=== PATIENT | male | born 1990 | race Caucasian/White ===

== ENCOUNTER 2017-01-08 10:51 | Emergency (ER) | payer OTHER ==
[~2017-01-08] VITALS: Ht 172.7 cm; Wt 131.1 kg
[2017-01-08 11:27] VITALS: BP 122/85
[2017-01-08 12:34] LABS: Hepatitis B Surface Antibody Positive
== END 2017-01-08 14:19 | disposition home or self-care (01) ==
LOC: ER 10:55
DX: S61.203A Unspecified open wound of left middle finger without damage to nail, initial encounter (principal); T75.89XA Other specified effects of external causes, initial encounter; W46.0XXA Contact with hypodermic needle, initial encounter; Y93.89 Activity, other specified; Y92.89 Other specified places as the place of occurrence of the external cause; Y99.8 Other external cause status
CPT/HCPCS: 36415; 86703; 86706; 86803; 87340

== ENCOUNTER → 2017-02-19 | Outpatient (CLI) | payer OTHER ==
[2017-02-19 16:33] LABS: Hepatitis B Surface Antibody Positive
== END | disposition home or self-care (01) ==
LOC: LAB 15:44
PROVIDERS: ATTEND Preventive Medicine Preventive Medicine/Occupational Environmental Medicine
DX: Z02.1 Encounter for pre-employment examination (principal)
CPT/HCPCS: 36415; 86703; 86706; 86803; 87340

== ENCOUNTER → 2018-04-19 | Outpatient (CLI) | payer BC ==
[2018-04-19 09:24] LABS: Basophils # (auto) 0.1 uL; Eosinophils # (auto) 0.5 uL; Eosinophils % (auto) 7.1 % (0.0-7.0); Neutrophils # (auto) 3.6 uL
[2018-04-19 09:26] LABS: Basophils % (auto) 1.2 % (0.0-2.0); Hematocrit 52.7 % (41.0-53.0); Hemoglobin 17.9 g/dL (13.5-17.5); Lymphocytes # (auto) 1.8 uL; Lymphocytes % (auto) 27.8 % (10.0-50.0); Mean Corpuscular Hemoglobin 31.2 pg (28.0-32.0); Mean Corpuscular Hgb Conc. 33.9 g/dL (32.0-36.0); Mean Corpuscular Volume 91.8 fL (80.0-100.0); Monocytes # (auto) 0.5 uL; Monocytes % (auto) 7.1 % (0.0-12.0); Neutrophils % (auto) 56.8 % (37.0-80.0); Nucleated Red Blood Cells % 0.1 %; Platelet Count (auto) 212 10^3/uL (140-450); Red Blood Cells 5.74 10^6/uL (4.5-5.90); White Blood Cell 6.4 10^3/uL (4.4-10.8)
[2018-04-19 09:31] LABS: Urine Bacteria NONE SEEN /hpf (None Seen); Urine Blood Negative /uL (Negative); Urine Mucus FEW (None Seen); Urine Specific Gravity 1.022 (1.001-1.035); Urine WBC <1 /hpf (0 - 3)
[2018-04-19 10:29] LABS: BUN/Creatinine Ratio 9.6; Bilirubin, Total 0.8 mg/dL (0.2-1.0); Calcium 9.1 mg/dL (8.5-10.1); Potassium 3.9 mmol/L (3.5-5.1); Total Protein 8.1 g/dL (6.4-8.2)
== END | disposition home or self-care (01) ==
LOC: LAB 08:52
PROVIDERS: ATTEND Internal Medicine
DX: F32.9 Major depressive disorder, single episode, unspecified (principal)
CPT/HCPCS: 36415; 80053; 80061; 81001; 84439; 84443; 85025; 85652

== ENCOUNTER → 2019-05-10 | Outpatient (CLI) | payer OTHER | END | disposition home or self-care (01) | LOC: LAB 15:27 | PROVIDERS: ATTEND Preventive Medicine Preventive Medicine/Occupational Environmental Medicine | DX: Z02.1 Encounter for pre-employment examination (principal) | CPT/HCPCS: 86787 ==

== ENCOUNTER → 2020-02-14 | Outpatient (CLI) | payer BC ==
[2020-02-14 12:22] LABS: Basophils # (auto) 0.1 10 ^3/uL (0-0.2); Basophils % (auto) 1.4 % (0.0-2.0); Eosinophils # (auto) 0.6 10 ^3/uL (0-0.8); Eosinophils % (auto) 9.3 % (0.0-7.0); Hematocrit 49.7 % (41.0-53.0); Lymphocytes % (auto) 31.8 % (10.0-50.0); Mean Corpuscular Hemoglobin 31.4 pg (28.0-32.0); Mean Corpuscular Hgb Conc. 34.1 g/dL (32.0-36.0); Mean Corpuscular Volume 91.9 fL (80.0-100.0); Monocytes # (auto) 0.4 10 ^3/uL (0-1.3); Monocytes % (auto) 6.8 % (0.0-12.0); Neutrophils # (auto) 3.1 10 ^3/uL (1.6-8.6); Neutrophils % (auto) 50.7 % (37.0-80.0); Nucleated Red Blood Cells % 0.3 %; Platelet Count (auto) 217 10^3/uL (140-450); Red Blood Cells 5.41 10^6/uL (4.5-5.90); Red Cell Distribution Width 14.3 % (11.8-14.3); White Blood Cell 6.1 10^3/uL (4.4-10.8)
[2020-02-14 12:31] LABS: Urine Bacteria NONE SEEN /hpf (None Seen); Urine Blood Negative /uL (Negative); Urine Mucus FEW (None Seen); Urine Specific Gravity 1.015 (1.001-1.035); Urine WBC 1 /hpf (0 - 3)
[2020-02-14 12:56] LABS: Albumin 3.8 g/dL (3.4-5.0); Calcium 9.1 mg/dL (8.5-10.1); Potassium 3.8 mmol/L (3.5-5.1)
[2020-02-14 13:01] LABS: BUN/Creatinine Ratio 5.8; Bilirubin, Total 0.9 mg/dL (0.2-1.0); Total Protein 7.5 g/dL (6.4-8.2)
== END | disposition home or self-care (01) ==
LOC: LAB 12:06
PROVIDERS: ATTEND Internal Medicine
DX: J45.20 Mild intermittent asthma, uncomplicated (principal); F31.4 Bipolar disorder, current episode depressed, severe, without psychotic features; E03.9 Hypothyroidism, unspecified
CPT/HCPCS: 36415; 80053; 80061; 81001; 84439; 84443; 85025; 85652

== ENCOUNTER 2020-06-02 22:48 | Emergency (ER) | payer BC ==
[~2020-06-02] VITALS: Ht 175.3 cm; Wt 140.6 kg
[2020-06-03] MEDS ORDERED: ACETAMINOPHEN 325 MG TAB PO ONE (00:30)
[2020-06-03] MEDS ORDERED: SODIUM CHLORIDE 0.9% 1,000 ML IV ONE (00:45)
[2020-06-03 03:08] VITALS: BP 141/88
== END 2020-06-03 03:07 | disposition home or self-care (01) ==
LOC: ER 22:50
DX: U07.1 COVID-19 (principal); J18.9 Pneumonia, unspecified organism; R42 Dizziness and giddiness; J45.909 Unspecified asthma, uncomplicated; F32.9 Major depressive disorder, single episode, unspecified
CPT/HCPCS: 36415; 71045; 87426; 96360; 99284; J7030